=== PATIENT | male | born 1930 | race Caucasian/White ===

== ENCOUNTER 2021-08-12 02:39 | Inpatient (IN) | payer MEDICARE, OTHER ==
[~2021-08-12] VITALS: Ht 172.7 cm; Wt 92.7 kg
[2021-08-12 03:15] LABS: BASOPHILS % (AUTO) 0.5 % (0.0-5.0); EOSINOPHILS % (AUTO) 0.8 % (0.0-8.0); HEMATOCRIT 38.8 % (42-54); LYMPHOCYTES % (AUTO) 11.1 % (21.0-51.0); MEAN CORPUSCULAR HEMOGLOBIN 42.6 pg (27.0-33.0); MEAN CORPUSCULAR HGB CONC 36.9 g/dL (32.0-36.0); MEAN CORPUSCULAR VOLUME 115.5 fL (79-99); MONOCYTES % (AUTO) 3.6 % (3.0-13.0); NEUTROPHILS % (AUTO) 83.3 % (40.0-77.0); PLATELET COUNT (AUTO) 146 K/uL (130-400); RED BLOOD CELL COUNT(AUTO) 3.36 MIL/uL (4.50-6.20); RED CELL DISTRIBUTION WIDTH 14.7 % (11.0-15.5)
[2021-08-12 03:28] LABS: INR 1.39 (0.85-1.15); PROTHROMBIN TIME 14.7 SEC (9.6-11.6)
[2021-08-12 03:44] LABS: ALBUMIN 2.5 g/dL (3.5-5.0); BILIRUBIN,TOTAL 2.9 mg/dL (0.2-1.0); CREATININE 2.1 mg/dL (0.5-1.5); MAGNESIUM 1.6 mg/dL (1.80-2.40); TOTAL PROTEIN, SERUM 6.3 g/dL (6.0-8.3)
[2021-08-12 03:49] LABS: APPEARANCE,URINE Clear (CLEAR); BILIRUBIN,URINE Negative (NEGATIVE); COLOR,URINE Dark Yellow (YELLOW); GLUCOSE, URINE (UA) Negative (NEGATIVE); KETONES,URINE Negative (NEGATIVE); LEUKOCYTE ESTERASE ,URINE Trace (NEGATIVE); NITRATE,URINE Negative (NEGATIVE); OCCULT BLOOD,URINE Negative (NEGATIVE); PROTEIN,URINE Negative (NEGATIVE)
[2021-08-12 03:57] LABS: BACTERIA,URINE None Seen /HPF (None Seen); RBC,URINE None Seen /HPF (0-1); WBC,URINE None Seen /HPF (0-1)
[2021-08-12] MEDS ORDERED: POTASSIUM BICARB/CIT AC 25 MEQ TABLET.EFF ONE (04:10)
[2021-08-12] MEDS ORDERED: MAGNESIUM 2GM PREMIX 50ML 50 ML IV SCH (05:00)
[2021-08-12] MEDS ORDERED: POTASSIUM BICARB/CIT AC 25 MEQ TABLET.EFF PO ONE (05:00)
[2021-08-12] MEDS ORDERED: SIMV10TA97 PO (07:59)
[2021-08-12] MEDS ORDERED: FURO80TA3 PO (08:03)
[2021-08-12] MEDS ORDERED: OMEP10CA5 PO (08:50)
[2021-08-12] MEDS ORDERED: VALA100031 PO (08:50)
[2021-08-12] MEDS ORDERED: APIX5TAB PO (08:50)
[2021-08-12] MEDS ORDERED: GLYB6TAB3 PO (08:50)
[2021-08-12] MEDS ORDERED: DOXY50TA14 PO (08:50)
[2021-08-12] MEDS ORDERED: APIXABAN 5 MG TABLET PO SCH (09:00)
[2021-08-12] MEDS ORDERED: DILTIAZEM 25MG INJ IVP PRN (09:00)
[2021-08-12] MEDS ORDERED: DILTIAZEM 125 MG/25 ML INJ 125 MG in 0.9%NACL 100ML 100 ML IV PRN (09:00)
[2021-08-12] MEDS ORDERED: ALBUMIN (HUMAN) 25% 100 ML IV SCH ×3 (09:00→13:30)
[2021-08-12] MEDS: CEFTRIAXONE 2GM VIAL IVP SCH (10:14)
[2021-08-12] MEDS ORDERED: LIDOCAINE HCL 1% 20 ML VIAL ONE (12:12)
[2021-08-12 13:18] LABS: GLUCOSE,BODY FLUID 99 mg/dL (1-40)
[2021-08-12 13:21] LABS: ALBUMIN,BODY FLUID < 0.6 g/dL
[2021-08-12] MEDS ORDERED: 0.9%NACL 1000ML 1,000 ML IV SCH (13:30)
[2021-08-12] MEDS ORDERED: FOLIC ACID 1 MG TABLET PO ONE (13:30)
[2021-08-12] MEDS ORDERED: MULTIVITAMIN TABLET PO SCH (13:30)
[2021-08-12] MEDS ORDERED: THIAMINE HCL 100 MG/ML 2ML VIAL IVP SCH (13:30)
[2021-08-12] MEDS ORDERED: HYDROMORPHONE 0.5 MG SYG (0.5MG/0.5ML) IVP PRN ×2 (13:30)
[2021-08-12 13:32] LABS: AMPHET/METH SCREEN,URINE NEGATIVE (NEGATIVE); BARBITURATE SCREEN, URINE NEGATIVE (NEGATIVE); BENZODIAZEPINES SCREEN,URINE NEGATIVE (NEGATIVE); CANNABINOID SCREEN,URINE NEGATIVE (NEGATIVE); COCAINE SCREEN,URINE NEGATIVE (NEGATIVE); OPIATE SCREEN,URINE NEGATIVE (NEGATIVE); PHENCYCLIDINE SCREEN,URINE NEGATIVE (NEGATIVE)
[2021-08-12 14:07] LABS: APPEARANCE BODY FLUID TURBID (CLEAR); BODY FLUID RBC 2250 /cu. mm.; BODY FLUID WBC 8500 /cu. mm.; COLOR,BODY FLUID ORANGE (LT YELLOW); SPECIMENTYPE,BODY FLUID ASCITES; TOTAL VOLUME,BODY FLUID 4000 mL
[2021-08-12 14:15] LABS: BF LYMPHOCYTE 1 %; BF MESOTHELIAL 11 %; BF MONOCYTE 9 %
[2021-08-12 14:19] LABS: HEMATOCRIT 32.3 % (42-54); LYMPHOCYTES % (AUTO) 4.5 % (21.0-51.0); MEAN CORPUSCULAR HEMOGLOBIN 43.3 pg (27.0-33.0); MEAN CORPUSCULAR HGB CONC 36.8 g/dL (32.0-36.0); MEAN CORPUSCULAR VOLUME 117.5 fL (79-99); MONOCYTES % (AUTO) 5.7 % (3.0-13.0); NEUTROPHILS % (AUTO) 89.5 % (40.0-77.0); PLATELET COUNT (AUTO) 71 K/uL (130-400); RED BLOOD CELL COUNT(AUTO) 2.75 MIL/uL (4.50-6.20); RED CELL DISTRIBUTION WIDTH 14.9 % (11.0-15.5); WHITE BLOOD COUNT (AUTO) 6.7 K/uL (4.8-10.8)
[2021-08-12] MEDS: MIDODRINE HCL 5 MG TABLET PO SCH ×2 (14:27→19:57)
[2021-08-12] MEDS: OCTREOTIDE ACETATE 100 MCG/ML AMP SQ SCH ×2 (14:27→19:57)
[2021-08-12 14:34] LABS: INR 1.51 (0.85-1.15); PROTHROMBIN TIME 15.9 SEC (9.6-11.6)
[2021-08-12 14:36] LABS: PARTIAL THROMBOPLASTIN TIME 37.6 SEC (26.3-35.5)
[2021-08-12 15:11] LABS: ALBUMIN 2.8 g/dL (3.5-5.0); CARBON DIOXIDE 28 mmol/L (21-32); CHLORIDE 96 mmol/L (101-111); CREATININE 2.3 mg/dL (0.5-1.5); GLOMERULAR FILTR. RATE CALC 29 mL/min (>60); GLUCOSE,RANDOM 145 mg/dL (70-105); POTASSIUM 3.6 mmol/L (3.5-5.1); SODIUM SERUM 133 mmol/L (136-145); UREA NITROGEN, BLOOD 65 mg/dL (7-18)
[2021-08-12 15:22] LABS: ERYTHROCYTE SEDIMENTATION RATE 17 MM/HR (0-20)
[2021-08-12 15:37] LABS: ALANINE AMINOTRANSFERASE 23 U/L (12-78); ASPARTATE AMINOTRANSFERASE 36 U/L (10-37); TOTAL PROTEIN, SERUM 5.8 g/dL (6.0-8.3)
[2021-08-13 08:30] VITALS: BP 84/64
[2021-08-13] MEDS: FOLIC ACID 1 MG TABLET PO SCH (10:08)
[2021-08-13] MEDS: THIAMINE HCL 100 MG/ML 2ML VIAL IVP SCH (10:08)
[2021-08-13] MEDS: MULTIVITAMIN TABLET PO SCH (10:08)
[2021-08-13] MEDS: MIDODRINE HCL 5 MG TABLET PO SCH ×3 (10:08→20:33)
[2021-08-13] MEDS: CEFTRIAXONE 2GM VIAL IVP SCH (10:08)
[2021-08-13 12:00] VITALS: BP 97/56
[2021-08-13 16:00] VITALS: BP 106/59
[2021-08-13] MEDS: OCTREOTIDE ACETATE 100 MCG/ML AMP SQ SCH ×2 (16:24→20:33)
[2021-08-13] MEDS: ALBUMIN (HUMAN) 25% 100 ML IV PRN ×2 (18:35→18:47)
[2021-08-13 19:23] LABS: BASOPHILS % (AUTO) 0.1 % (0.0-5.0); EOSINOPHILS % (AUTO) 0.3 % (0.0-8.0); HEMATOCRIT 32.7 % (42-54); LYMPHOCYTES % (AUTO) 3.8 % (21.0-51.0); MEAN CORPUSCULAR HEMOGLOBIN 41.3 pg (27.0-33.0); MEAN CORPUSCULAR HGB CONC 35.8 g/dL (32.0-36.0); MEAN CORPUSCULAR VOLUME 115.5 fL (79-99); MONOCYTES % (AUTO) 12.2 % (3.0-13.0); PLATELET COUNT (AUTO) 86 K/uL (130-400); RED BLOOD CELL COUNT(AUTO) 2.83 MIL/uL (4.50-6.20); RED CELL DISTRIBUTION WIDTH 14.5 % (11.0-15.5); WHITE BLOOD COUNT (AUTO) 9.4 K/uL (4.8-10.8)
[2021-08-13 19:44] LABS: ALBUMIN 3.5 g/dL (3.5-5.0); BILIRUBIN,TOTAL 1.8 mg/dL (0.2-1.0); CREATININE 1.9 mg/dL (0.5-1.5); POTASSIUM 3.6 mmol/L (3.5-5.1); TOTAL PROTEIN, SERUM 6.3 g/dL (6.0-8.3)
[2021-08-13 20:05] VITALS: BP 110/56
[2021-08-14 00:22] VITALS: BP 95/54
[2021-08-14 03:41] LABS: BASOPHILS % (AUTO) 0.1 % (0.0-5.0); EOSINOPHILS % (AUTO) 0.6 % (0.0-8.0); HEMATOCRIT 33.1 % (42-54); LYMPHOCYTES % (AUTO) 5.4 % (21.0-51.0); MONOCYTES % (AUTO) 13.5 % (3.0-13.0); NEUTROPHILS % (AUTO) 79.8 % (40.0-77.0); PLATELET COUNT (AUTO) 71 K/uL (130-400); RED BLOOD CELL COUNT(AUTO) 2.83 MIL/uL (4.50-6.20); RED CELL DISTRIBUTION WIDTH 14.8 % (11.0-15.5); WHITE BLOOD COUNT (AUTO) 8.8 K/uL (4.8-10.8)
[2021-08-14 03:53] LABS: INR 1.69 (0.85-1.15); PROTHROMBIN TIME 17.6 SEC (9.6-11.6)
[2021-08-14 03:55] LABS: PARTIAL THROMBOPLASTIN TIME 44.4 SEC (26.3-35.5)
[2021-08-14 03:58] LABS: ALBUMIN 2.7 g/dL (3.5-5.0); CREATININE 1.8 mg/dL (0.5-1.5); CRP QUANTITATIVE 162.9 mg/L (0.00-9.0); MAGNESIUM 2.2 mg/dL (1.80-2.40); PHOSPHORUS 3.4 mg/dL (2.5-4.9); POTASSIUM 3.3 mmol/L (3.5-5.1); TOTAL PROTEIN, SERUM 5.2 g/dL (6.0-8.3)
[2021-08-14 04:00] VITALS: BP 102/59
[2021-08-14] MEDS: OCTREOTIDE ACETATE 100 MCG/ML AMP SQ SCH ×3 (04:44→21:19)
[2021-08-14] MEDS: MIDODRINE HCL 5 MG TABLET PO SCH ×3 (04:45→21:19)
[2021-08-14 04:48] LABS: ERYTHROCYTE SEDIMENTATION RATE 25 MM/HR (0-20)
[2021-08-14 07:25] VITALS: BP 98/60
[2021-08-14] MEDS: MULTIVITAMIN TABLET PO SCH (10:04)
[2021-08-14] MEDS: FOLIC ACID 1 MG TABLET PO SCH (10:04)
[2021-08-14] MEDS: THIAMINE HCL 100 MG/ML 2ML VIAL IVP SCH (10:04)
[2021-08-14] MEDS: CEFTRIAXONE 2GM VIAL IVP SCH (10:04)
[2021-08-14 11:20] VITALS: BP 110/59
[2021-08-14] MEDS ORDERED: PHYTONADIONE 10 MG in 0.9%NACL 50ML 50 ML IVPB SCH (12:30)
[2021-08-14] MEDS ORDERED: SPIRONOLACTONE 25 MG TAB PO SCH (12:30)
[2021-08-14] MEDS ORDERED: COMPOUND IV MISC 1 EACH IVSOLN MISC PRN (13:00)
[2021-08-14] MEDS: KCL 20 MEQ ERTAB PO SCH (14:00)
[2021-08-14] MEDS: PHYTONADIONE 10 MG in 0.9%NACL 50ML 50 ML IVPB SCH (14:01)
[2021-08-14 15:20] VITALS: BP 100/54
[2021-08-14 20:00] VITALS: BP 107/66
[2021-08-15] VITALS: BP 117/75
[2021-08-15 04:00] VITALS: BP 116/62
[2021-08-15 04:13] LABS: BASOPHILS % (AUTO) 0.2 % (0.0-5.0); EOSINOPHILS % (AUTO) 0.9 % (0.0-8.0); HEMATOCRIT 35.2 % (42-54); LYMPHOCYTES % (AUTO) 6.2 % (21.0-51.0); MEAN CORPUSCULAR HEMOGLOBIN 42.5 pg (27.0-33.0); MEAN CORPUSCULAR HGB CONC 36.4 g/dL (32.0-36.0); MEAN CORPUSCULAR VOLUME 116.9 fL (79-99); NEUTROPHILS % (AUTO) 73.8 % (40.0-77.0); PLATELET COUNT (AUTO) 86 K/uL (130-400); RED BLOOD CELL COUNT(AUTO) 3.01 MIL/uL (4.50-6.20); RED CELL DISTRIBUTION WIDTH 14.4 % (11.0-15.5); WHITE BLOOD COUNT (AUTO) 9.7 K/uL (4.8-10.8)
[2021-08-15 04:24] LABS: INR 1.32 (0.85-1.15)
[2021-08-15 04:25] LABS: PARTIAL THROMBOPLASTIN TIME 37.8 SEC (26.3-35.5)
[2021-08-15 04:30] LABS: ALBUMIN 2.5 g/dL (3.5-5.0); BILIRUBIN,TOTAL 2.1 mg/dL (0.2-1.0); CREATININE 1.8 mg/dL (0.5-1.5); MAGNESIUM 2.1 mg/dL (1.80-2.40); POTASSIUM 3.7 mmol/L (3.5-5.1); TOTAL PROTEIN, SERUM 5.3 g/dL (6.0-8.3)
[2021-08-15] MEDS: OCTREOTIDE ACETATE 100 MCG/ML AMP SQ SCH ×3 (05:26→21:13)
[2021-08-15] MEDS: MIDODRINE HCL 5 MG TABLET PO SCH ×3 (05:26→21:13)
[2021-08-15 07:20] VITALS: BP 107/63
[2021-08-15] MEDS: CEFTRIAXONE 2GM VIAL IVP SCH (10:24)
[2021-08-15] MEDS: MULTIVITAMIN TABLET PO SCH (10:24)
[2021-08-15] MEDS: THIAMINE HCL 100 MG/ML 2ML VIAL IVP SCH (10:24)
[2021-08-15] MEDS: PHYTONADIONE 10 MG in 0.9%NACL 50ML 50 ML IVPB SCH (10:25)
[2021-08-15] MEDS: SPIRONOLACTONE 25 MG TAB PO SCH (10:25)
[2021-08-15] MEDS: FOLIC ACID 1 MG TABLET PO SCH (10:25)
[2021-08-15 11:15] VITALS: BP 107/52
[2021-08-15] MEDS: KCL 20 MEQ ERTAB PO SCH (12:59)
[2021-08-15 15:20] VITALS: BP 99/52
[2021-08-15 20:00] VITALS: BP 102/61
[2021-08-16] VITALS (7 sets, daily range): BP systolic 92–116; BP diastolic 51–66
[2021-08-16 04:40] LABS: BASOPHILS % (AUTO) 0.2 % (0.0-5.0); EOSINOPHILS % (AUTO) 1.2 % (0.0-8.0); HEMATOCRIT 35.3 % (42-54); LYMPHOCYTES % (AUTO) 7.2 % (21.0-51.0); MEAN CORPUSCULAR HEMOGLOBIN 42.9 pg (27.0-33.0); MEAN CORPUSCULAR HGB CONC 36.5 g/dL (32.0-36.0); MEAN CORPUSCULAR VOLUME 117.3 fL (79-99); MONOCYTES % (AUTO) 20.7 % (3.0-13.0); NEUTROPHILS % (AUTO) 69.5 % (40.0-77.0); PLATELET COUNT (AUTO) 91 K/uL (130-400); RED BLOOD CELL COUNT(AUTO) 3.01 MIL/uL (4.50-6.20); RED CELL DISTRIBUTION WIDTH 14.5 % (11.0-15.5); WHITE BLOOD COUNT (AUTO) 8.4 K/uL (4.8-10.8)
[2021-08-16 05:03] LABS: BILIRUBIN,TOTAL 2.2 mg/dL (0.2-1.0); CREATININE 1.6 mg/dL (0.5-1.5); TOTAL PROTEIN, SERUM 5.4 g/dL (6.0-8.3)
[2021-08-16] MEDS: OCTREOTIDE ACETATE 100 MCG/ML AMP SQ SCH ×3 (05:21→22:03)
[2021-08-16] MEDS: MIDODRINE HCL 5 MG TABLET PO SCH ×3 (05:21→22:03)
[2021-08-16] MEDS: ONDANSETRON 4MG INJ IVP PRN (08:33)
[2021-08-16] MEDS: MULTIVITAMIN TABLET PO SCH (08:41)
[2021-08-16] MEDS: PHYTONADIONE 10 MG in 0.9%NACL 50ML 50 ML IVPB SCH (08:41)
[2021-08-16] MEDS: THIAMINE HCL 100 MG/ML 2ML VIAL IVP SCH (08:41)
[2021-08-16] MEDS: FOLIC ACID 1 MG TABLET PO SCH (08:41)
[2021-08-16] MEDS: SPIRONOLACTONE 25 MG TAB PO SCH (08:42)
[2021-08-16] MEDS: CEFTRIAXONE 2GM VIAL IVP SCH (08:42)
[2021-08-16 14:17] LABS: CREATININE 1.7 mg/dL (0.5-1.5); POTASSIUM 4.1 mmol/L (3.5-5.1)
[2021-08-17] VITALS (13 sets, daily range): BP systolic 91–116; BP diastolic 52–63
[2021-08-17] MEDS: MIDODRINE HCL 5 MG TABLET PO SCH ×3 (05:38→21:26)
[2021-08-17] MEDS: OCTREOTIDE ACETATE 100 MCG/ML AMP SQ SCH ×3 (05:38→21:27)
[2021-08-17 06:29] LABS: BASOPHILS % (AUTO) 0.3 % (0.0-5.0); EOSINOPHILS % (AUTO) 1.7 % (0.0-8.0); HEMATOCRIT 37.3 % (42-54); LYMPHOCYTES % (AUTO) 7.1 % (21.0-51.0); MEAN CORPUSCULAR HEMOGLOBIN 42.4 pg (27.0-33.0); MEAN CORPUSCULAR HGB CONC 35.7 g/dL (32.0-36.0); MEAN CORPUSCULAR VOLUME 118.8 fL (79-99); MONOCYTES % (AUTO) 20.9 % (3.0-13.0); NEUTROPHILS % (AUTO) 68.5 % (40.0-77.0); PLATELET COUNT (AUTO) 99 K/uL (130-400); RED BLOOD CELL COUNT(AUTO) 3.14 MIL/uL (4.50-6.20); RED CELL DISTRIBUTION WIDTH 14.5 % (11.0-15.5); WHITE BLOOD COUNT (AUTO) 8.8 K/uL (4.8-10.8)
[2021-08-17 06:43] LABS: INR 1.24 (0.85-1.15); PROTHROMBIN TIME 13.3 SEC (9.6-11.6)
[2021-08-17 06:44] LABS: PARTIAL THROMBOPLASTIN TIME 32.9 SEC (26.3-35.5)
[2021-08-17 06:54] LABS: ALBUMIN 2.3 g/dL (3.5-5.0); BILIRUBIN,TOTAL 2.2 mg/dL (0.2-1.0); CREATININE 1.7 mg/dL (0.5-1.5); MAGNESIUM 2.2 mg/dL (1.80-2.40); POTASSIUM 4.3 mmol/L (3.5-5.1); TOTAL PROTEIN, SERUM 5.4 g/dL (6.0-8.3)
[2021-08-17] MEDS: FOLIC ACID 1 MG TABLET PO SCH (09:00)
[2021-08-17] MEDS: SPIRONOLACTONE 25 MG TAB PO SCH (09:00)
[2021-08-17] MEDS: THIAMINE HCL 100 MG/ML 2ML VIAL IVP SCH (09:00)
[2021-08-17] MEDS: MULTIVITAMIN TABLET PO SCH (09:00)
[2021-08-17] MEDS: CEFTRIAXONE 2GM VIAL IVP SCH (09:30)
[2021-08-17] MEDS ORDERED: ALBUMIN (HUMAN) 25% 200 ML IV SCH (11:00)
[2021-08-17 11:25] LABS: ALBUMIN,BODY FLUID 0.6 g/dL
[2021-08-17 14:14] LABS: APPEARANCE BODY FLUID CLOUDY (CLEAR); BODY FLUID WBC 455 /cu. mm.; COLOR,BODY FLUID DARK YELLOW (LT YELLOW); SPECIMENTYPE,BODY FLUID ASCITES; TOTAL VOLUME,BODY FLUID 4000 mL
[2021-08-17 14:15] LABS: BODY FLUID RBC 1175 /cu. mm.
[2021-08-17 14:21] LABS: BF LYMPHOCYTE 18 %; BF MONOCYTE 20 %
[2021-08-17] MEDS ORDERED: BALSAM PERU/CASTOR OIL 60 GM TUBE TP PRN (14:30)
[2021-08-17] MEDS ORDERED: RENAL DOSE IV SCH (16:00)
[2021-08-17] MEDS ORDERED: LIDOCAINE HCL MPF 1% 5ML VIAL ONE (16:18)
[2021-08-17] MEDS: MEROPENEM 1 GM VIAL IVP SCH (17:17)
[2021-08-17] MEDS: BALSAM PERU/CASTOR OIL 60 GM TUBE TP SCH (21:26)
[2021-08-18] VITALS (7 sets, daily range): BP systolic 87–111; BP diastolic 45–65
[2021-08-18] MEDS: MEROPENEM 1 GM VIAL IVP SCH ×2 (04:03→15:07)
[2021-08-18 04:10] LABS: BASOPHILS % (AUTO) 0.3 % (0.0-5.0); EOSINOPHILS % (AUTO) 2.3 % (0.0-8.0); HEMATOCRIT 32.9 % (42-54); LYMPHOCYTES % (AUTO) 6.8 % (21.0-51.0); MEAN CORPUSCULAR HEMOGLOBIN 41.9 pg (27.0-33.0); MEAN CORPUSCULAR HGB CONC 35.6 g/dL (32.0-36.0); MEAN CORPUSCULAR VOLUME 117.9 fL (79-99); NEUTROPHILS % (AUTO) 71.6 % (40.0-77.0); PLATELET COUNT (AUTO) 78 K/uL (130-400); RED BLOOD CELL COUNT(AUTO) 2.79 MIL/uL (4.50-6.20); WHITE BLOOD COUNT (AUTO) 6.6 K/uL (4.8-10.8)
[2021-08-18 04:27] LABS: ALBUMIN 2.5 g/dL (3.5-5.0); BILIRUBIN,TOTAL 2.1 mg/dL (0.2-1.0); CREATININE 1.8 mg/dL (0.5-1.5); CRP QUANTITATIVE 102.6 mg/L (0.00-9.0); TOTAL PROTEIN, SERUM 5.1 g/dL (6.0-8.3)
[2021-08-18] MEDS: MIDODRINE HCL 5 MG TABLET PO SCH ×3 (05:24→20:51)
[2021-08-18 05:37] LABS: ERYTHROCYTE SEDIMENTATION RATE 12 MM/HR (0-20)
[2021-08-18] MEDS: OCTREOTIDE ACETATE 100 MCG/ML AMP SQ SCH ×3 (07:21→20:52)
[2021-08-18] MEDS: MULTIVITAMIN TABLET PO SCH (08:30)
[2021-08-18] MEDS: FOLIC ACID 1 MG TABLET PO SCH (08:30)
[2021-08-18] MEDS: SPIRONOLACTONE 25 MG TAB PO SCH (08:30)
[2021-08-18] MEDS: THIAMINE HCL 100 MG/ML 2ML VIAL IVP SCH (08:31)
[2021-08-18] MEDS: CEFTRIAXONE 2GM VIAL IVP SCH (08:31)
[2021-08-18] MEDS: BALSAM PERU/CASTOR OIL 60 GM TUBE TP SCH ×3 (09:00→20:52)
[2021-08-19] VITALS (8 sets, daily range): BP systolic 92–117; BP diastolic 50–70
[2021-08-19] MEDS: MEROPENEM 1 GM VIAL IVP SCH ×2 (03:57→15:58)
[2021-08-19 04:31] LABS: BASOPHILS % (AUTO) 0.5 % (0.0-5.0); EOSINOPHILS % (AUTO) 1.4 % (0.0-8.0); HEMATOCRIT 34.7 % (42-54); LYMPHOCYTES % (AUTO) 7.1 % (21.0-51.0); MEAN CORPUSCULAR HEMOGLOBIN 42.7 pg (27.0-33.0); MEAN CORPUSCULAR HGB CONC 36.3 g/dL (32.0-36.0); MEAN CORPUSCULAR VOLUME 117.6 fL (79-99); MONOCYTES % (AUTO) 14.7 % (3.0-13.0); NEUTROPHILS % (AUTO) 74.1 % (40.0-77.0); PLATELET COUNT (AUTO) 88 K/uL (130-400); RED BLOOD CELL COUNT(AUTO) 2.95 MIL/uL (4.50-6.20); RED CELL DISTRIBUTION WIDTH 14.1 % (11.0-15.5); WHITE BLOOD COUNT (AUTO) 8.3 K/uL (4.8-10.8)
[2021-08-19 04:52] LABS: ALBUMIN 2.5 g/dL (3.5-5.0); BILIRUBIN,TOTAL 2.3 mg/dL (0.2-1.0); CREATININE 1.8 mg/dL (0.5-1.5); POTASSIUM 4.1 mmol/L (3.5-5.1); TOTAL PROTEIN, SERUM 5.1 g/dL (6.0-8.3)
[2021-08-19] MEDS: MIDODRINE HCL 5 MG TABLET PO SCH ×3 (05:56→21:02)
[2021-08-19] MEDS: OCTREOTIDE ACETATE 100 MCG/ML AMP SQ SCH ×3 (05:57→21:03)
[2021-08-19] MEDS: ALBUMIN (HUMAN) 25% 100 ML IV SCH (10:27)
[2021-08-19] MEDS: FOLIC ACID 1 MG TABLET PO SCH (10:28)
[2021-08-19] MEDS: THIAMINE HCL 100 MG/ML 2ML VIAL IVP SCH (10:28)
[2021-08-19] MEDS: CEFTRIAXONE 2GM VIAL IVP SCH (10:28)
[2021-08-19] MEDS: MULTIVITAMIN TABLET PO SCH (10:28)
[2021-08-19] MEDS: BALSAM PERU/CASTOR OIL 60 GM TUBE TP SCH ×3 (13:39→21:03)
[2021-08-19] MEDS ORDERED: ASCORBIC ACID 500 MG TAB PO SCH (19:30)
[2021-08-19] MEDS ORDERED: TAMSULOSIN HCL 0.4 MG CAP.ER.24H PO SCH (19:30)
[2021-08-19] MEDS ORDERED: ZINC SULFATE 220 CAPSULE PO SCH (19:30)
[2021-08-19 21:51] LABS: INR 1.39 (0.85-1.15); PROTHROMBIN TIME 14.7 SEC (9.6-11.6)
[2021-08-19] MEDS: ONDANSETRON 4MG INJ IVP PRN (22:19)
[2021-08-20] MEDS: MEROPENEM 1 GM VIAL IVP SCH (03:47)
[2021-08-20 04:12] VITALS: BP 100/58
[2021-08-20] MEDS: MIDODRINE HCL 5 MG TABLET PO SCH ×2 (05:01→13:24)
[2021-08-20 05:02] LABS: BASOPHILS % (AUTO) 0.5 % (0.0-5.0); EOSINOPHILS % (AUTO) 1.8 % (0.0-8.0); HEMATOCRIT 34.5 % (42-54); MEAN CORPUSCULAR HEMOGLOBIN 43.2 pg (27.0-33.0); MEAN CORPUSCULAR HGB CONC 37.1 g/dL (32.0-36.0); MEAN CORPUSCULAR VOLUME 116.6 fL (79-99); MONOCYTES % (AUTO) 13.1 % (3.0-13.0); NEUTROPHILS % (AUTO) 76.8 % (40.0-77.0); PLATELET COUNT (AUTO) 69 K/uL (130-400); RED BLOOD CELL COUNT(AUTO) 2.96 MIL/uL (4.50-6.20); RED CELL DISTRIBUTION WIDTH 13.9 % (11.0-15.5); WHITE BLOOD COUNT (AUTO) 5.7 K/uL (4.8-10.8)
[2021-08-20] MEDS: OCTREOTIDE ACETATE 100 MCG/ML AMP SQ SCH ×2 (05:02→13:24)
[2021-08-20 05:26] LABS: ALBUMIN 2.8 g/dL (3.5-5.0); BILIRUBIN,TOTAL 2.2 mg/dL (0.2-1.0); CREATININE 1.5 mg/dL (0.5-1.5); CRP QUANTITATIVE 70.7 mg/L (0.00-9.0); MAGNESIUM 1.9 mg/dL (1.80-2.40); PHOSPHORUS 3.2 mg/dL (2.5-4.9); POTASSIUM 4.4 mmol/L (3.5-5.1); TOTAL PROTEIN, SERUM 5.3 g/dL (6.0-8.3)
[2021-08-20 07:58] VITALS: BP 95/57
[2021-08-20] MEDS ORDERED: TAMSULOSIN HCL 0.4 MG CAP.ER.24H PO SCH (09:00)
[2021-08-20] MEDS ORDERED: ASCORBIC ACID 500 MG TAB PO SCH (09:00)
[2021-08-20] MEDS ORDERED: ZINC SULFATE 220 CAPSULE PO SCH (09:00)
[2021-08-20] MEDS: ALBUMIN (HUMAN) 25% 100 ML IV SCH ×2 (09:00→13:23)
[2021-08-20] MEDS: MULTIVITAMIN TABLET PO SCH (10:19)
[2021-08-20] MEDS: THIAMINE HCL 100 MG/ML 2ML VIAL IVP SCH (10:19)
[2021-08-20] MEDS: FOLIC ACID 1 MG TABLET PO SCH (10:19)
[2021-08-20] MEDS: CEFTRIAXONE 2GM VIAL IVP SCH (10:20)
[2021-08-20] MEDS: BALSAM PERU/CASTOR OIL 60 GM TUBE TP SCH ×2 (10:21→14:06)
[2021-08-20 12:00] VITALS: BP 101/60
[2021-08-20] MEDS ORDERED: PHARMACY COMMUNICATION MISC SCH (13:30)
[2021-08-20] MEDS ORDERED: OCTREOTIDE ACETATE 100 MCG/ML AMP SQ SCH (14:40)
== END 2021-08-20 15:30 | DRG 432 ==
LOC: EDH 02:39 → EDHIP 04:49 → 4AH 08-13 08:30
PROVIDERS: ADMIT Internal Medicine; ATTEND Internal Medicine
PROC: 0W9G3ZZ Drainage of Peritoneal Cavity, Percutaneous Approach (ICD-10-PCS; principal; 2021-08-12)
PROC: 0W9G3ZZ Drainage of Peritoneal Cavity, Percutaneous Approach (ICD-10-PCS; 2021-08-17)
DX: K74.60 Unspecified cirrhosis of liver (principal); K65.2 Spontaneous bacterial peritonitis; B19.10 Unspecified viral hepatitis B without hepatic coma; K76.6 Portal hypertension; R18.8 Other ascites; E87.1 Hypo-osmolality and hyponatremia; N17.9 Acute kidney failure, unspecified; E87.6 Hypokalemia; E83.42 Hypomagnesemia; K59.00 Constipation, unspecified; I11.0 Hypertensive heart disease with heart failure; I48.91 Unspecified atrial fibrillation; D69.6 Thrombocytopenia, unspecified; E11.9 Type 2 diabetes mellitus without complications; E66.9 Obesity, unspecified; E78.00 Pure hypercholesterolemia, unspecified; E78.5 Hyperlipidemia, unspecified; E87.8 Other disorders of electrolyte and fluid balance, not elsewhere classified; I25.10 Atherosclerotic heart disease of native coronary artery without angina pectoris; I50.9 Heart failure, unspecified; L89.152 Pressure ulcer of sacral region, stage 2; Z74.01 Bed confinement status; Z79.01 Long term (current) use of anticoagulants; Z95.5 Presence of coronary angioplasty implant and graft; Z83.3 Family history of diabetes mellitus; Z68.31 Body mass index [BMI] 31.0-31.9, adult
CPT/HCPCS: 36415; 49083; 71045; 74176; 80048; 80053; 80305; 81001; 82042; 82140; 82550; 82607; 82728; 82746; 82945; 82948; 83036; 83605; 83615; 83690; 83735; 83880; 83986; 84100; 84145; 84157; 84484; 85025; 85045; 85610; 85651; 85730; 86140; 87071; 87205; 88112; 88305; 88341; 88342; 89051; 93005; 96365; 97039; C1729; C1894; G0378; J0696; J1170; J2185; J2354; J2405; J3411; J3430; J3475; J3490; P9046